=== PATIENT | female | born 1950 | race Caucasian/White ===

== ENCOUNTER → 2018-01-31 07:35 | Outpatient (CLI) | payer MEDICARE, OTHER, SELFPAY ==
[2018-01-31 09:09] LABS: Free T3, Triiodothyronine Free 3.04 pg/mL (2.77-5.27); Free T4, Direct Thyroxine 0.97 ng/dL (0.78-2.19)
[2018-01-31 09:23] LABS: Thyroid Stimulating Hormone 3.46 uIU/mL (0.47-4.68)
[2018-02-04 15:11] LABS: Thyroid Peroxidase Antibodies < 1 IU/mL (< 9)
== END ==
PROVIDERS: PCP Family Medicine; Visit Provider Family Medicine
DX: E05.00 Thyrotoxicosis with diffuse goiter without thyrotoxic crisis or storm (principal); E03.9 Hypothyroidism, unspecified
CPT/HCPCS: 36415; 83519; 84439; 84443; 84481; 86376

== ENCOUNTER → 2018-09-25 07:00 | Outpatient (CLI) | payer MEDICARE, OTHER, SELFPAY ==
[2018-09-25 08:39] LABS: Alanine Aminotransferase 23 IU/L (9-52); Albumin 4.2 g/dL (3.5-5.0); Albumin Globulin Ratio 1.5 (1.0-2.8); Alkaline Phosphatase 71 U/L (38-126); Aspartate Aminotransferase 27 IU/L (14-36); Bilirubin Total 0.6 mg/dL (0.2-1.3); Blood Urea Nitrogen 14 mg/dL (7-17); Calcium 9.7 mg/dL (8.4-10.2); Carbon Dioxide 29 mmol/L (22-32); Chloride 103 mmol/L (98-107); Cholesterol 171 mg/dL (140-199); Estimated Glomerular Filt Rate > 60.0 mL/min (>60); Globulin 2.8 g/dL (1.7-4.1); Glucose 99 mg/dL (80-110); HDL Cholesterol 80 mg/dL (40-60); HEMOLYSIS < 15 (0-50); LDL Cholesterol Calculated 82 mg/dL (<100); Potassium 4.6 mmol/L (3.4-5.1); Sodium 138 mmol/L (137-145); Triglycerides 45 mg/dL (35-150)
== END ==
PROVIDERS: PCP Family Medicine; Visit Provider Family Medicine
DX: E78.5 Hyperlipidemia, unspecified (principal)
CPT/HCPCS: 36415; 80053; 80061

== ENCOUNTER → 2018-10-13 15:40 | Outpatient (CLI) | payer MEDICARE, OTHER, SELFPAY ==
--- NOTE | 2018-10-13 15:43 | DI.MRI.S_ITS ---
PROCEDURE: MR ORBITS FACE NECK WO CON INDICATIONS: evaluate for Grave's Disease. Eye bulging TECHNIQUE: Noncontrast sagittal T1 spin echo, axial FLAIR, axial gradient echo, axial diffusion and ADC acquired through the brain. Coronal STIR, thin-slice axial T1 spin echo through the orbits. After the administration of contrast, thin-slice axial and coronal T1 spin echo with fat saturation through the orbits, axial T1 spin echo with fat saturation through the brain. COMPARISON: None. FINDINGS: Image quality: Excellent. Orbits: Globes are symmetrical. The optic nerves are normal in size, without abnormal signal or enhancement. No retrobulbar masses or fat abnormalities. The extra-ocular muscles are normal and symmetric in appearance. Lacrimal glands are normal. Optic chiasm is normal. Periorbital soft tissues appear normal. CSF spaces: Ventricles are normal in size and shape. Basal cisterns are patent. No extra-axial fluid collections. Brain: No intracranial bleeds or mass effects. No abnormal intracranial enhancement. T2 hyperintense 9 mm probable cystic lesion seen in the pineal region although technically nonspecific. White-white matter interface is intact. Diffusion weighted images demonstrate no acute ischemic insults. Pituitary gland appears normal, without sellar or suprasellar masses. Brainstem appears normal. Normal intravascular flow voids are present. Skull and face: Calvarial marrow is normal in signal. Sinuses: Sinuses and mastoids are clear. IMPRESSION: Unremarkable unenhanced examination as detailed above. Unremarkable appearance of the orbits although if there is sufficient clinical concern, contrast-enhanced study could be considered. 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 In the absence of prior comparison studies, consider continued surveillance with 6 month interval contrast-enhanced brain MRI for confirmation purposes. Dictated by: Bacilio Kat M.D. on 10/14/2018 at 16:37 Approved by: Bacilio Kat M.D. on 10/14/2018 at 16:44
== END ==
PROVIDERS: PCP Family Medicine; Visit Provider Ophthalmology
DX: E05.00 Thyrotoxicosis with diffuse goiter without thyrotoxic crisis or storm (principal)
CPT/HCPCS: 70540

== ENCOUNTER → 2018-11-27 08:45 | Outpatient (CLI) | payer MEDICARE, OTHER, SELFPAY ==
--- NOTE | 2018-11-27 08:50 | DI.RAD.S_ITS ---
PROCEDURE: XR HIP W PEL IF DONE LT 2V INDICATIONS: LEFT hip pain TECHNIQUE: 2 views of the hip were acquired. COMPARISON: None. FINDINGS: Bones: No fractures or dislocations. No suspicious bony lesions. The visualized pelvic ring appears intact. Mild left hip joint degeneration Soft tissues: No suspicious soft tissue calcifications or masses. IMPRESSION: Mild left hip joint degeneration. Dictated by: Bacilio Kat M.D. on 11/27/2018 at 10:04 Approved by: Bacilio Kat M.D. on 11/27/2018 at 10:05
--- NOTE | 2018-11-27 08:50 | DI.RAD.S_ITS ---
PROCEDURE: XR KNEE LT 3V INDICATIONS: LEFT knee pain TECHNIQUE: 3 views of the knee were acquired. COMPARISON: None. FINDINGS: Bones: No fractures or dislocations. No suspicious bony lesions. Severe patellofemoral joint space narrowing. Moderate narrowing of the medial joint space. Scattered degenerative subchondral sclerosis and spurring. Soft tissues: No joint effusion. No suspicious soft tissue calcifications. IMPRESSION: Severe left knee joint degeneration. Dictated by: Bacilio Kat M.D. on 11/27/2018 at 9:28 Approved by: Bacilio Kat M.D. on 11/27/2018 at 9:29
== END ==
PROVIDERS: PCP Family Medicine; Visit Provider Registered Nurse
DX: M25.562 Pain in left knee (principal); M25.552 Pain in left hip; M17.12 Unilateral primary osteoarthritis, left knee; M16.12 Unilateral primary osteoarthritis, left hip; M25.561 Pain in right knee; M25.551 Pain in right hip
CPT/HCPCS: 73502; 73562

== ENCOUNTER → 2019-01-22 10:09 | Outpatient (CLI) | payer MEDICARE, OTHER, SELFPAY ==
--- NOTE | 2019-01-22 10:12 | DI.US.S_ITS ---
LIMITED ULTRASOUND OF LEFT BREAST AND AXILLA: 01/22/2019 CLINICAL: Palpable left breast lump. Comparison is made to exams dated: 01/22/2019 mammogram, 08/02/2017 mammogram, 08/12/2015 mammogram, 04/02/2014 mammogram, and 10/08/2012 mammogram - [facility]. Color flow and real-time ultrasound of the left breast 2-4 o'clock, and axilla regions were performed. White scale images of the real-time examination were reviewed. Targeted ultrasound was performed in the region of the patient's reported focal palpable area of concern in the left breast at 2:00 position 5 cm from the nipple. No underlying breast mass or abnormality is identified. Targeted ultrasound was performed in the region of the patient's referring provider's focal palpable area of concern in the left breast at 4:00 position 5 cm from the nipple. No underlying breast mass or abnormality is identified. There is a 0.6 x 0.5 x 0.3 cm oval indistinct hypoechoic mass with posterior shadowing, taller than wide orientation, and no vascularity on Doppler imaging in the left breast at 4:00 position 5 cm from the nipple. This appears to correlate with the asymmetry seen on comparison diagnostic mammography performed earlier today 01/22/19. IMPRESSION: SUSPICIOUS OF MALIGNANCY 1) 0.6 x 0.5 x 0.3 cm oval indistinct hypoechoic mass in the left breast at 4:00 position 5 cm from the nipple is at low suspicion for malignancy. An ultrasound guided biopsy is recommended. 2) No ultrasound findings to explain patient's reported focal palpable area of concern in the left breast at 2:00 position 5 cm from the nipple. Recommend clinical follow-up for further evaluation and management of the patient's reported symptoms. These results and recommendations were discussed with the patient at the time of the exam by the [facility] Radiologist Dr. Dario Dean in person. This exam was interpreted at Station ID: [id number]. Electronically Signed By: Jj Levy M.D. ecl/:01/22/2019 11:48:21 letter sent: Biopsy Required Ultrasound BI-RADS: 4a Low suspicion for malignancy
--- NOTE | 2019-01-22 10:12 | DI.MG.S_ITS ---
BILATERAL DIGITAL DIAGNOSTIC MAMMOGRAM 3D/2D: 01/22/2019 CLINICAL: Left Lump. Patient's referring provider's order/requisition states 0.5 cm 4 o'clock position 5 cm from the nipple left breast. Comparison is made to exams dated: 08/02/2017 mammogram, 08/12/2015 mammogram, and 04/02/2014 mammogram - [facility]. The tissue of both breasts is heterogeneously dense. This may lower the sensitivity of mammography. There is a triangular marker overlying the skin of the upper outer left breast at middle depth the site of the patient's reported palpable abnormality. There is no underlying mammographic abnormality. Patient's referring provider's order/requisition describes a palpable abnormality described as 0.5 cm 4 o'clock position 5 cm from the nipple left breast. There is an oval indistinct focal asymmetry in the lower outer left breast near 4:00 position middle depth. This is best seen on the true lateral L LM view in the inferior left breast at middle depth (tomosynthesis image 32/57). No other suspicious masses, calcifications, or other findings are seen in either breast. There is a biopsy clip in the right breast. IMPRESSION: INCOMPLETE: NEEDS ADDITIONAL IMAGING EVALUATION 1) No mammographic abnormality to correlate with the site of the patient's reported focal palpable abnormality of the upper outer left breast. Targeted diagnostic ultrasound recommended for further evaluation, which will be performed immediately following this exam. 2) Patient's referring provider's order/requisition describes a palpable abnormality described as 0.5 cm 4 o'clock position 5 cm from the nipple left breast. There is an oval indistinct focal asymmetry in the lower outer left breast near 4:00 position middle depth which persists with additional views. Targeted diagnostic ultrasound recommended for further evaluation, which will be performed immediately following this exam. This exam was interpreted at Station ID: [id number]. NOTE: For mammograms, a report in lay terms will be sent to the patient. Approximately 15% of breast malignancies will not be visualized mammographically. In the management of a palpable breast mass, a negative mammogram must not discourage biopsy of a clinically suspicious lesion. Electronically Signed By: Jj Levy M.D. ecl/:01/22/2019 11:50:45 ACR BI-RADS Category 0: Incomplete [id number]
== END ==
PROVIDERS: PCP Family Medicine; Visit Provider Family Medicine
DX: R92.8 Other abnormal and inconclusive findings on diagnostic imaging of breast (principal); N63.23 Unspecified lump in the left breast, lower outer quadrant
CPT/HCPCS: 76642; 77066; G0279

== ENCOUNTER → 2019-02-12 13:04 | Outpatient (CLI) | payer MEDICARE, OTHER, SELFPAY ==
--- NOTE | 2019-02-12 | DI.MG.S_ITS ---
UNILATERAL LEFT DIGITAL DIAGNOSTIC MAMMOGRAM POST-NEEDLE BIOPSY: 02/12/2019 CLINICAL: Left breast mass. Comparison is made to exams dated: 01/22/2019 mammogram, 08/02/2017 mammogram, and 08/12/2015 mammogram - [facility]. The tissue of left breast is heterogeneously dense. This may lower the sensitivity of mammography. There is a biopsy clip is at the biopsy site. IMPRESSION: The biopsy clip is at the biopsy site. This exam was interpreted at Station ID: [id number]. NOTE: For mammograms, a report in lay terms will be sent to the patient. Approximately 15% of breast malignancies will not be visualized mammographically. In the management of a palpable breast mass, a negative mammogram must not discourage biopsy of a clinically suspicious lesion. Electronically Signed By: Jessica Koch M.D. fx/:02/12/2019 15:16:31 ACR BI-RADS Category n/a
--- NOTE | 2019-02-12 | PATH_ITS ---
[facility] Accession Number: [id number] . 01 Material submitted: . breast - LEFT BREAST 4:00 MASS 5 CM FN . 02 Diagnosis: Left Breast Mass at 4 o'clock, 5 cm from Nipple, Needle Core Biopsy: Benign breast parenchyma with fibroadenomatous and fibrocystic features and involvement by sclerosing adenosis. Negative for atypia, carcinoma in-situ, or malignancy. MRV 02/13/2019 1605 Local . 02 Electronically signed: . Pat Pollard MD, Pathologist NPI- [id number] . 01 Gross description: . Received one formalin-filled container labeled with the patient's name and designated left breast 4 o'clock mass 5 cm FN. The specimen is received with a plastic filter in container, sample loose in container and consists of multiple yellow-jansen, cylindrical-shaped portions of tissue which range in size from 0.1 x 0.1 x 0.1 cm to 1.2 x 0.3 x 0.3 cm. The specimen is filtered and entirely submitted in one cassette. Collection date: 02/12/2019. Collection time per container: 1:50 p.m. Total fixation time: Approximately 13 hours. ([id number]) /[place] 02/13/2019 0225 Local . 02 Pathologist provided ICD-10: N60.02 . 02 CPT . 962428 Performed at: 01 [facility] [address] [place] [address], [place], [place] [id number] MD Bennie Cooper MD Phone: [phone] Performed at: [address] [facility] [address] [place], [place] [id number] MD Cyndee Trivedi MD Phone: [phone]
--- NOTE | 2019-02-12 13:05 | DI.US.S_ITS ---
ULTRASOUND GUIDED BIOPSY LEFT BREAST USING VACUUM DEVICE WITH POST MAMMOGRAPHIC AND ULTRASOUND IMAGIN02/12/2019 CLINICAL: Left breast mass. PATIENT CONSENT: Risks (minor bleeding, infection, vasovagal reaction and repeat procedure), benefits and alternatives were explained to the patient and written informed consent was obtained. Correlation is made to exams dated: 01/22/2019 ultrasound, 01/22/2019 mammogram, 08/02/2017 mammogram, and 08/12/2015 mammogram - [facility]. An ultrasound guided biopsy using real-time ultrasound was performed for the oval mass located in the left breast at 4 o'clock middle depth. This was described on the previous ultrasound report. The skin was prepped in the usual manner. Local anesthetic was administered to the access site. The abnormality was approached from the lateral aspect. A 13 gauge biopsy needle was placed adjacent to the abnormality under ultrasound guidance. Once the needle was documented to be in the correct location, five specimens were obtained using the Mammotome biopsy system. Post procedure mammographic and ultrasound imaging demonstrates the clip at the targeted area. The specimens were sent to the laboratory for pathological analysis. IMPRESSION: ULTRASOUND GUIDED BIOPSY BENIGN Ultrasound guided biopsy of the mass in the left breast middle depth was successful. Pathology indicates benign sclerosing adenosis (SA), fibroadenomatoid change, and fibrocystic changes (FC). Pathology results are concordant with imaging findings. Return to annual mammogram screening schedule is recommended. This exam was interpreted at Station ID: [id number]. Jessica Carroll M.D. fx,aty/:02/17/2019 17:46:13
== END ==
PROVIDERS: PCP Family Medicine; Visit Provider Family Medicine
DX: N60.22 Fibroadenosis of left breast (principal); N60.12 Diffuse cystic mastopathy of left breast
CPT/HCPCS: 19083; 77065

== ENCOUNTER → 2019-03-25 15:58 | Outpatient (CLI) | payer MEDICARE, OTHER, SELFPAY | PROVIDERS: PCP Family Medicine; Visit Provider Physician Assistant | DX: R30.0 Dysuria (principal) | CPT/HCPCS: 87086 ==

== ENCOUNTER → 2019-07-01 15:38 | Outpatient (CLI) | payer MEDICARE, OTHER, SELFPAY ==
--- NOTE | 2019-07-01 15:40 | DI.MRI.S_ITS ---
PROCEDURE: MR HEAD/BRAIN WO/W CON INDICATIONS: Pineal cyst TECHNIQUE: Noncontrast axial T1 spin echo, axial T2 fast spin echo, sagittal and axial FLAIR, coronal T2 fast spin echo, axial gradient echo, axial diffusion and ADC through the brain. After the administration of contrast, axial and coronal T1 spin echo with fat saturation through the brain. COMPARISON: [facility], MR, MR ORBITS FACE NECK WO CON, 10/13/2018, 16:00. FINDINGS: Image quality: Excellent. CSF spaces: Basal cisterns are patent. No extra-axial fluid collections. Ventricles are normal in size and shape. Brain: No midline shift. No intracranial bleeds or masses. Grossly unchanged 9 mm pineal cystic lesion since the prior study dated 10/13/18. No internal enhancement There is cerebral volume loss for age. There is periventricular white matter chronic small vessel ischemic change. The brainstem appears normal. Diffusion-weighted images demonstrate no acute ischemic insults. No chronic ischemic insults. Normal intravascular flow voids are present. Skull and face: Calvarial marrow is normal in signal. Orbits appear normal. Sinuses: Sinuses and mastoids appear clear. 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 on 07/01/2019 at 16:48 Approved by: Bacilio Kat M.D. on 07/01/2019 at 17:02
== END ==
PROVIDERS: PCP Family Medicine; Referring Provider Family Medicine; Visit Provider Family Medicine
DX: E34.8 Other specified endocrine disorders (principal)
CPT/HCPCS: 70553

== ENCOUNTER 2019-07-17 12:24 | Emergency (ER) | payer MEDICARE, OTHER, SELFPAY ==
[2019-07-17 12:32] VITALS: BP 159/91; PULSE 90; RESP 16; TEMP 37.1; O2SAT 99; BMI 28.5
--- NOTE | 2019-07-17 12:32 | ED.GENADULT ---
HPI - General Adult General Chief complaint: Chest Pain Stated complaint: heart symptoms Time Seen by Provider: 07/17/19 12:30 Source: patient Mode of arrival: Ambulatory Limitations: no limitations History of Present Illness HPI narrative: Patient is a 68-year-old female sent over via primary doctor for evaluation of potential COVID and chest pain. Patient states that over the past couple days/week she has been in contact with 2 individuals that are known positive. She has also had a cough and malaise. Had 1 day of a headache. Had some nausea but that has since resolved. She has also had left-sided chest discomfort. This has been going on for the past 3 weeks. It is occasional. She did have at this morning. She does not think that is associated with her cough. Related Data Home Medications Medication Instructions Recorded Confirmed [CO Q 10] 100 mg OR HS #0 08/03/16 03/25/19 latanoprost [Xalatan] 1 drp OU HS #0 08/03/16 03/25/19 Previous Rx's Medication Instructions Recorded atorvastatin 10 mg tablet 10 mg PO HS #90 tab-cap 07/29/18 10% diclofenac See Rx Instructions .ROUTE 10/30/18 .COMPLEX #60 gram acyclovir 400 mg tablet 400 mg PO TID PRN #30 tab-cap 04/22/19 Allergies Allergy/AdvReac Type Severity Reaction Status Date / Time Penicillins [PENICILLINS] Allergy Severe severe Verified 03/25/19 08:21 swelling Review of Systems Constitutional Constitutional: Reports chills and Reports fatigue Cardiovascular Cardiovascular: Reports chest pain, Denies rapid heart rate, Denies edema, Denies palpitations and Denies dyspnea Respiratory Respiratory: Reports cough and Denies dyspnea Gastrointestinal Gastrointestinal: Reports nausea and Denies vomiting Musculoskeletal Musculoskeletal: Denies myalgias and Denies arthralgias Integumentary/Breasts Skin/Breast: Denies lesions and Denies rash Neurologic Neurologic: Denies behavioral changes Psychiatric Psychiatric: Denies behavioral changes Endocrine Endocrine: Reports fatigue and Denies palpitations Patient History Medical History Actinic keratosis due to exposure to sunlight (Acute ~2004) Chickenpox (Inactive ~1958) Fractures (Acute ~1972) GERD (gastroesophageal reflux disease) (Resolved ~2004) Hemorrhage following tonsillectomy and adenoidectomy (Acute) Measles (Acute ~1962) Mumps (Acute ~1959) Shoulder pain with history of repair of rotator cuff (Acute ~2001) Surgical History (Updated 12/12/18 @ 07:23 by Diana Comer) Anesthesia (Acute) H/O colonoscopy with polypectomy (Acute) History of adenoidectomy (Acute ~1955) History of carpal tunnel release of both wrists (Acute ~1997) History of colonoscopy (Acute) History of tonsillectomy (Acute ~1957) Family History (Updated 12/12/18 @ 07:27 by Diana Comer) Father Congestive heart failure Seizures Mother Alzheimer's dementia High cholesterol Grandfather High cholesterol Cancer Grandmother Diabetes mellitus Recovering alcoholic Grandfather No problems noted. Grandmother No problems noted. Social History Smoking Status: Never smoker alcohol intake: current substance use type: does not use Smoking Status: Never smoker Exam Initial Vital Signs Initial Vital Signs: Vital Signs Temperature 98.8 F 07/17/19 12:32 Pulse Rate 90 07/17/19 12:32 Respiratory Rate 16 07/17/19 12:32 Blood Pressure 159/91 H 07/17/19 12:32 Pulse Oximetry 99 07/17/19 12:32 Const General: cooperative, comfortable, well developed and well groomed Limitations: mental status not altered HENMT Head: normal to inspection and normocephalic Resp Effort & Inspection: normal respiratory effort Auscultation: clear to auscultation bilaterally Cardio Rate: regular rate Rhythm: regular rhythm Pulses: radial pulses present Skin Lesions: no lesions Rashes: no rashes Neuro General: alert, awake and oriented x3 Cognition: normal cognition Speech: speech normal Extrem General: normal to inspection and capillary refill normal Psych Appearance: grossly normal Scores HEART Score Heart Score history: Slightly Suspicious Heart Score EKG: Normal Heart Score Age: > or = 65 years old Heart Score risk factors: 1-2 risk factors Heart Score troponin: < or = to normal limit Heart Score Total: 3 Course Orders Ordered: ED Orders 07/17/19 12:31 EKG-12 Lead Stat 07/17/19 12:32 XR chest 1V Stat 07/17/19 12:45 Basic Metabolic Panel Stat Complete Blood Count AUTO DIFF Stat NT-proBNP (BNP-Adult 18+) Stat Troponin I Stat 07/17/19 15:00 Troponin I Stat Vital Signs Vital signs: Vital Signs - 8 hr 07/17/19 12:32 07/17/19 13:10 07/17/19 14:00 Temperature 98.8 F Pulse Rate 90 91 H 78 Respiratory Rate 16 19 Blood Pressure 159/91 H Blood Pressure [Left Arm] 155/91 H Pulse Oximetry 99 99 99 07/17/19 15:04 Temperature Pulse Rate 68 Respiratory Rate 21 Blood Pressure Blood Pressure [Left Arm] 144/67 H Pulse Oximetry 100 Medical Decision Making Lab Data Lab results reviewed: Yes I reviewed the patient's lab results. Result diagrams: 07/17/19 12:45 07/17/19 12:45 Labs: Lab Results 07/17/19 07/17/19 07/17/19 Range/Units 12:45 12:45 12:45 WBC 6.9 (4.5-11.0) X10^3/uL RBC 4.40 (4.0-5.2) X10^6/uL Hgb 13.2 (12.0-16.0) g/dL Hct 39.8 (36-46) % MCV 90.4 (80-100) fL MCH 30.1 (26-34) PG MCHC 33.3 (30-36) % RDW 13.6 (11.6-14.8) % Plt Count 286 (150-400) X10^3/uL Neut % (Auto) 58.2 (50-75) % Lymph % (Auto) 31.3 (25-40) % Victoria % (Auto) 7.7 (3-14) % Eos % (Auto) 2.0 (2-4) % Baso % (Auto) 0.8 (0-2) % Neut # (Auto) 4000 (2272-2805) /uL Lymph # (Auto) 2200 (0784-3637) /uL Victoria # (Auto) 500 (0-900) /uL Eos # (Auto) 100 (0-450) /uL Baso # (Auto) 100 (0-100) /uL Sodium 141 (137-145) mmol/L Potassium 4.0 (3.4-5.1) mmol/L Chloride 104 (98-107) mmol/L Carbon Dioxide 28 (22-32) mmol/L BUN 17 (7-17) mg/dL Creatinine 0.73 (0.52-1.04) mg/dL Estimated GFR > 60.0 (>60) mL/min BUN/Creatinine Ratio 23.3 H (6-22) Glucose 112 H (80-110) mg/dL Calcium 9.8 (8.4-10.2) mg/dL Troponin I < 0.012 (0.01-0.034) ng/mL NT-Pro-B Natriuret Pep 41 (<125) pg/mL 07/17/19 Range/Units 15:00 WBC (4.5-11.0) X10^3/uL RBC (4.0-5.2) X10^6/uL Hgb (12.0-16.0) g/dL Hct (36-46) % MCV (80-100) fL MCH (26-34) PG MCHC (30-36) % RDW (11.6-14.8) % Plt Count (150-400) X10^3/uL Neut % (Auto) (50-75) % Lymph % (Auto) (25-40) % Victoria % (Auto) (3-14) % Eos % (Auto) (2-4) % Baso % (Auto) (0-2) % Neut # (Auto) (9997-6456) /uL Lymph # (Auto) (8555-5448) /uL Victoria # (Auto) (0-900) /uL Eos # (Auto) (0-450) /uL Baso # (Auto) (0-100) /uL Sodium (137-145) mmol/L Potassium (3.4-5.1) mmol/L Chloride (98-107) mmol/L Carbon Dioxide (22-32) mmol/L BUN (7-17) mg/dL Creatinine (0.52-1.04) mg/dL Estimated GFR (>60) mL/min BUN/Creatinine Ratio (6-22) Glucose (80-110) mg/dL Calcium (8.4-10.2) mg/dL Troponin I < 0.012 (0.01-0.034) ng/mL NT-Pro-B Natriuret Pep (<125) pg/mL Imaging Data Chest x-ray: Radiologist's Impression: [address] [address] XRay Report Signed Patient: Rosas Hernandez KMR#: [id number] : [id number]:[id number] Age/Sex: 68 / FDate of Service: 07/17/19 Loc: ED Accession Number: [id number] Procedure: XR chest 1V Ordering Provider: Con Stephens D.O. PROCEDURE: XR CHEST 1V INDICATIONS: Chest pain and cough TECHNIQUE: One view of the chest was acquired. COMPARISON: [facility], CHEST 2 VIEW, 10/19/2015, 11:42. [facility], CHEST 2 VIEW, 04/06/2013, 10:33. FINDINGS: Surgical changes and devices: None. Lungs and pleura: Lungs are clear. No pleural effusions or pneumothorax. Mediastinum: Mediastinal contours appear normal. Heart size is normal. Bones and chest wall: No suspicious bony lesions. Overlying soft tissues appear unremarkable. IMPRESSION: Normal for age, source of current chest pain and cough symptoms is not seen. Dictated by: Avelino Gustafson M.D. on 07/17/2019 at 13:22 Approved by: Avelino Gustafson M.D. on 07/17/2019 at 13:24 ECG Data Attestation: I personally reviewed and interpreted this ECG as follows: Prior ECG tracings: not available for review Interpretation: Sinus rhythm Ventricular rate 83 Normal axis Normal QRS Normal QTC No ST T wave changes MDM Narrative Medical decision making narrative: Patient was tested for COVID she was given return precautions and isolation instructions with regard to this. Has had occasional left-sided chest pain for the past 3 weeks. Has a low risk heart score. Negative troponin x2. I feel we could hold on further workup for now with regard to this. Have her contact her primary provider for follow-up. No indication for antibiotics. She was given return precautions. She expressed understanding and agreement. Discharge Plan Departure Patient Disposition: Home Clinical Impression: Atypical chest pain Instructions: DI for Atypical Chest Pain Activity Restrictions/Additional Instructions: Your COVID-19 test today will take 2-7 days to return. We will call you for positive or negative results. Also recommend you contact your primary doctor to discuss further workup of your chest discomfort. *What to do: * per recommendations from the CDC and the [facility] Department of Health * stay home except to get medical care. Restrict activities outside your home, except for getting medical care. Do not go to work, school, or public areas. Avoid using public transportation, ride sharing, or taxis. * separate yourself from other people in your home. * call ahead before visiting your doctor * Wear a face mask * Cover your coughs and sneezes * Clean your hands often * Avoid sharing household items * Clean all high-touch services every day * Monitor your symptoms and seek prompt medical attention if your illness is worsening, particularly with difficulty in breathing. Discussed continuing home isolation * for individuals with symptoms who are confirmed or suspected cases of COVID-19 and are directed to care for themselves at home, discontinue home isolation under the following conditions: 1. At least 72 hours have passed since recovery, defined as resolution of fever without the use of fever reducing medications, and improvement in respiratory symptoms (cough, shortness of breath) AND, 2. At least 7 days have passed since symptoms 1st appeared Individuals with laboratory confirmed COVID-19 who have not had any symptoms may discontinue home isolation when at least 7 days have passed since the date of their 1st COVID-19 diagnostic test and have had no subsequent illness Prescriptions: No Action [CO Q 10] 100 mg OR HS Qty: 0 RF: 0 latanoprost [Xalatan] 0.005 % drops 1 drp OU HS Qty: 0 RF: 0 atorvastatin [Lipitor] 10 mg tablet 10 mg PO HS Qty: 90 RF: 3 acyclovir 400 mg tablet 400 mg PO TID PRN (Reason: outbreak) Qty: 30 RF: 3 10% diclofenac cream See Rx Instructions .ROUTE .COMPLEX Qty: 60 RF: 2 Referrals: Shreya Regalado DO [Primary Care Provider] -
[2019-07-17 12:58] LABS: Add Manual Diff / Slide Review NO; Basophils Absolute Auto 100 /uL (0-100); Basophils Percent Auto 0.8 % (0-2); Eosinophils Absolute Auto 100 /uL (0-450); Hematocrit 39.8 % (36-46); Hemoglobin 13.2 g/dL (12.0-16.0); Lymphocytes Absolute Auto 2200 /uL (1100-4500); Lymphocytes Percent Auto 31.3 % (25-40); Mean Corpuscular HGB Conc 33.3 % (30-36); Mean Corpuscular Hemoglobin 30.1 PG (26-34); Mean Corpuscular Volume 90.4 fL (80-100); Monocytes Absolute Auto 500 /uL (0-900); Monocytes Percent Auto 7.7 % (3-14); Neutrophils Absolute Auto 4000 /uL (1500-7000); Neutrophils Percent Auto 58.2 % (50-75); Platelet Count 286 X10^3/uL (150-400); Red Cell Distribution Width 13.6 % (11.6-14.8); White Blood Cell Count 6.9 X10^3/uL (4.5-11.0)
--- NOTE | 2019-07-17 13:02 | PC.NURSE ---
Patient reports she had an exposure to COVID a few weeks ago. Since then has had very mild intermittent cough and chest pain. States chest pain comes and goes and has been coming more frequently the last few days. Chest painsometimes happens just while I'm lying down in bed. Not always associated with cough. Patient also has some swelling in legs.
[2019-07-17 13:10] VITALS: BP 155/91; PULSE 91; O2SAT 99
[2019-07-17 13:14] LABS: BUN Creatinine Ratio 23.3 (6-22); Blood Urea Nitrogen 17 mg/dL (7-17); Calcium 9.8 mg/dL (8.4-10.2); Carbon Dioxide 28 mmol/L (22-32); Chloride 104 mmol/L (98-107); Estimated Glomerular Filt Rate > 60.0 mL/min (>60); Glucose 112 mg/dL (80-110); HEMOLYSIS < 15 (0-50); Sodium 141 mmol/L (137-145)
[2019-07-17 13:24] LABS: NT-proBNP (BNP-Adult 18+) 41 pg/mL (<125)
[2019-07-17 13:26] LABS: Troponin I < 0.012 ng/mL (0.01-0.034)
[2019-07-17 14:00] VITALS: PULSE 78; RESP 19; O2SAT 99
[2019-07-17 15:04] VITALS: BP 144/67; PULSE 68; RESP 21; O2SAT 100
[2019-07-17 15:36] LABS: Troponin I < 0.012 ng/mL (0.01-0.034)
[2019-07-17 16:03] VITALS: BP 144/67; PULSE 76; RESP 16; O2SAT 99
[2019-07-18 22:53] LABS: COVID19 Sendout Not Detected (Not Detected)
== END 2019-07-17 16:19 | disposition home or self-care (01) ==
PROVIDERS: Emergency Provider Emergency Medicine; PCP Family Medicine
DX: R07.89 Other chest pain (principal); R05 Cough; R51 Headache; R68.89 Other general symptoms and signs
CPT/HCPCS: 36415; 71045; 80048; 83880; 84484; 85025; 87635; 93005; 99284

== ENCOUNTER → 2019-12-14 10:56 | Outpatient (CLI) | payer MEDICARE, OTHER, SELFPAY ==
[2019-12-16 12:36] LABS: H. Pylori Antigen Stool Negative (Negative)
== END ==
PROVIDERS: PCP Family Medicine; Referring Provider Family Medicine; Visit Provider Family Medicine
DX: R10.12 Left upper quadrant pain (principal); R11.0 Nausea
CPT/HCPCS: 87338

== ENCOUNTER → 2020-01-22 07:14 | Outpatient (CLI) | payer MEDICARE, OTHER, SELFPAY ==
[2020-01-22 09:33] LABS: Alanine Aminotransferase 23 IU/L (<35); Albumin 4.4 g/dL (3.5-5.0); Albumin Globulin Ratio 1.5 (1.0-2.8); Alkaline Phosphatase 86 U/L (38-126); Aspartate Aminotransferase 34 IU/L (14-36); BUN Creatinine Ratio 16.9 (6-22); Bilirubin Total 0.5 mg/dL (0.2-1.3); Blood Urea Nitrogen 13 mg/dL (7-17); Calcium 9.7 mg/dL (8.4-10.2); Carbon Dioxide 32 mmol/L (22-32); Chloride 104 mmol/L (98-107); Cholesterol 234 mg/dL (140-199); Estimated Glomerular Filt Rate > 60.0 mL/min (>60); Glucose 99 mg/dL (80-110); HDL Cholesterol 100 mg/dL (40-60); HEMOLYSIS < 15 (0-50); LDL Cholesterol Calculated 121 mg/dL (<100); Potassium 4.9 mmol/L (3.4-5.1); Sodium 140 mmol/L (137-145); Total Protein 7.4 g/dL (6.3-8.2); Triglycerides 63 mg/dL (35-150)
== END ==
PROVIDERS: PCP Family Medicine; Referring Provider Family Medicine; Visit Provider Family Medicine
DX: E78.2 Mixed hyperlipidemia (principal)
CPT/HCPCS: 36415; 80053; 80061

== ENCOUNTER → 2020-02-15 10:07 | Outpatient (CLI) | payer MEDICARE, OTHER, SELFPAY ==
--- NOTE | 2020-02-15 | DI.MG.S_ITS ---
BILATERAL DIGITAL SCREENING MAMMOGRAM 3D/2D WITH CAD: 02/15/2020 CLINICAL: Routine screening. Comparison is made to exams dated: 01/22/2019 mammogram, 08/02/2017 mammogram, and 08/12/2015 mammogram - [facility]. There are scattered fibroglandular elements in both breasts. Current study was also evaluated with a Computer Aided Detection (CAD) system. There is a biopsy clip in both breasts. No significant masses, calcifications, or other findings are seen in either breast. There has been no significant interval change. IMPRESSION: NEGATIVE There is no mammographic evidence of malignancy. A 1 year screening mammogram is recommended. This exam was interpreted at Station ID: [id number]. NOTE: For mammograms, a report in lay terms will be sent to the patient. Approximately 15% of breast malignancies will not be visualized mammographically. In the management of a palpable breast mass, a negative mammogram must not discourage biopsy of a clinically suspicious lesion. Electronically Signed By: Renate beckett/jaimie:02/15/2020 13:44:52 letter sent: Normal Exam ACR BI-RADS Category 1: Negative 3341F
== END ==
PROVIDERS: PCP Family Medicine; Referring Provider Family Medicine; Visit Provider Family Medicine
DX: Z12.31 Encounter for screening mammogram for malignant neoplasm of breast (principal)
CPT/HCPCS: 77063; 77067

== ENCOUNTER → 2020-06-09 12:03 | Outpatient (CLI) | payer MEDICARE, OTHER, SELFPAY ==
[2020-06-09 12:25] LABS: COVID19 -Nasal RAPID Negative (Negative)
== END ==
PROVIDERS: PCP Family Medicine; Visit Provider Surgery
DX: Z20.822 Contact with and (suspected) exposure to COVID-19 (principal); R10.13 Epigastric pain; K21.9 Gastro-esophageal reflux disease without esophagitis; R11.0 Nausea
CPT/HCPCS: 87635; 99214

== ENCOUNTER 2020-06-10 06:49 | Day surgery (SDC) | payer MEDICARE, OTHER, SELFPAY ==
[2020-06-10] VITALS (9 sets, daily range): BP systolic 101–121; BP diastolic 53–73; PULSE 68–99; RESP 12–20; TEMP 36.8–37.4; O2SAT 93–100; BMI 30.7
--- NOTE | 2020-06-10 | PATH_ITS ---
[facility] Accession Number: [id number] . 01 Material submitted: . PART A: duodenum - DUODENUM PART B: stomach - STOMACH PART C: esophagus - ESOPHAGUS . 02 Diagnosis: A. Duodenum, Biopsy: Duodenal mucosa with no diagnostic abnormality. Negative for active inflammation, features of sprue, dysplasia, or malignancy. . B. Stomach, Biopsy: Portions of gastric antral and body-type mucosa with mild chronic inflammation. Negative for Helicobacter organisms by immunohistochemistry. Negative for intestinal metaplasia. Negative for dysplasia and malignancy. . C. Esophagus, Biopsy: Portions of proximal gastric mucosa with mild chronic inflammation. Negative for intestinal metaplasia by alcian blue stain. No squamous / junctional mucosa identified for evaluation. Negative for dysplasia or malignancy. [facility] 06/16/2020 1622 Local . 02 Electronically signed: . Pat Pollard MD, Pathologist NPI- [id number] . 01 Gross description: . A. Specimen A is received in formalin, labeled duodenum and consists of a 0.5 x 0.3 x 0.2 cm jansen fragment of soft tissue, which is entirely submitted in cassette A1. B. Specimen B is received in formalin, labeled stomach and consists of four jansen fragments of soft tissue, measuring 1.2 x 1.0 x 0.2 cm in aggregate. The specimen is entirely submitted in cassette B1. C. Specimen C is received in formalin, labeled esophagus and consists of three jansen fragments of soft tissue, measuring 1.0 x 0.8 x 0.2 cm in aggregate. The specimen is entirely submitted in cassette C1. (EA:[id number]) /[facility] 06/14/2020 1722 Local . 02 Microscopic: . B. An immunohistochemical stain was performed to evaluate for Helicobacter organisms and is negative. The control stain showed appropriate reactivity. . * This test was developed and its performance characteristics determined by [facility]. It has not been cleared or approved by the U.S. Food and Drug Administration. The FDA has determined that such clearance or approval is not necessary. This test is used for clinical purposes. It should not be regarded as investigational or for research. . 02 Pathologist provided ICD-10: R11.0, R12 . 02 CPT . 317118, 329469, 538956, [id number], [id number] Performed at: 01 [facility] [address] [id number] MD Bennie Cooper MD Phone: [phone] Performed at: 02 [facility] [address] [place] [id number] MD Cyndee Trivedi MD Phone: [phone]
--- NOTE | 2020-06-10 07:28 | PM.PREOP ---
Pre-operative Note COVID-19 COVID-19 status: Negative Result date/Date tested (Pos, Neg/Pending): 06/09/20 Interval Note History & Physical reviewed/Exam performed by Physician: Yes Changes to H&P: No ASA Class (for procedural sedation): II
[2020-06-10] MEDS: SODIUM CHLORIDE 0.9% 1,000 ML 200 ML IV (07:32)
--- NOTE | 2020-06-10 08:02 | PM.OP.ENDO ---
Operative Date/Time/Diagnoses Date of procedure: 06/10/20 Time of procedure: 08:02 Pre-op diagnosis: Nausea Post-op diagnosis: other (hiatal hernia, possible diaphgragmatic hernia; Au's esophagus, gastritis) Procedure & Clinicians Study performed: Esophagogastroduodenoscopy Procedural sedation performed by the endoscopist Biopsies of duodenum, stomach, distal esophagus Same procedure as scheduled: Yes Indications: Persistent nausea and epigastric, unresolved by PPI Surgeon: Ginny Coppola Procedure Notes SCOAP/Timeout: Performed Procedure in detail: The patient was brought to the room and placed in left lateral decubitus position with all bony prominences padded. A bite block was positioned in the patient's mouth to protect the lips, teeth, and tongue for the procedure. A time-out was performed and then the patient was given procedural sedation starting with 4 mg of Versed and 100 mcg of fentanyl. Vitals were monitored throughout the procedure and remained stable. Once adequately sedated, the procedure was begun. The lubricated gastroscope was passed through the bite block and across the tongue and into the esophagus without incident. A tubular view of the esophagus was maintained as the scope was advanced through the esophagus and into the stomach. The scope was advanced through the stomach and to the pylorus. The scope was gently popped through the pylorus and into the duodenal bulb. The scope was flexed and advanced into the second and third portions of the duodenum. The duodenum and duodenal bulb revealed some mild endoscopic inflammation, no specific ulcers or sites of bleeding. Biopsies were taken. The scope was withdrawn into the stomach. The stomach revealed some endoscopic gastritis, without visible ulcers or active bleeding. Biopsies were taken to rule out H pylori and to quantify the degree of gastritis. The scope was retroflexed and the gastric cardia was examined. There was a defect in the apex of the fundus of the stomach, consistent with a possible diaphragmatic hernia. Pictures were taken. No ulcerations were seen in the stomach at this site. The scope was then straightened, and withdrawn into the esophagus. The Z-line was at 33 cm with a large tongue of salmon-colored mucosa coming up into the esophagus about 2-3 cm. This was nearly circumferential, about 2/3 to [address] the esophagus. The crural pinch was seen at 28 cm. Biopsies were taken. The remainder of the esophagus appeared normal. The scope was then withdrawn through the esophagus with a tubular view. The scope was then withdrawn from the patient the procedure was concluded. The patient tolerated the procedure well and was transferred to the PACU in stable condition. Sedation minutes: 12 Findings: Au's esophagus, gastritis, hiatal hernia and other findings (Possible diaphragmatic hernia) Specimen(s): other (Biopsies of esophagus, stomach, duodenum) Complications: none Impression: Potential causes of nausea are hiatal hernia, esophagitis, gastritis, diaphragmatic hernia Post-procedure Recommendations: Other recommendation (CT scan to evaluate for diaphragmatic hernia will be ordered. Further recommendations pending biopsy results) Follow up: as needed Disposition: PACU
[2020-06-10] MEDS: MIDAZOLAM 5 MG/5 ML VIAL IV (08:05)
[2020-06-10] MEDS: fentaNYL 250 MCG/5 ML INJ IV (08:05)
--- NOTE | 2020-06-10 09:14 | SUR.PHASEII ---
Assumed care from Radha, called for update, awaiting to get script from Dr. Coppola.
--- NOTE | 2020-06-10 16:42 | SUR.PHASEII ---
Late entry: Pt waited till Dr. Coppola clarified omeprazole order, she instructed pt to get renewal prescription from the doctor who prescribed med.
--- NOTE | 2020-06-10 16:45 | SUR.PHASEII ---
Pt left when ready and left in stable condition.
== END 2020-06-10 09:30 | disposition home or self-care (01) ==
PROVIDERS: PCP Family Medicine; Referring Provider Family Medicine; Visit Provider Surgery
PROC: 0DJ08ZZ Inspection of Upper Intestinal Tract, Via Natural or Artificial Opening Endoscopic (ICD-10-PCS; CPT 43235; principal; 2020-06-10 07:45)
DX: K29.50 Unspecified chronic gastritis without bleeding (principal); K44.9 Diaphragmatic hernia without obstruction or gangrene; K22.70 Barrett's esophagus without dysplasia; K21.00 Gastro-esophageal reflux disease with esophagitis, without bleeding
CPT/HCPCS: 43239; 99152; J2250; J3010

== ENCOUNTER → 2020-06-14 13:41 | Outpatient (CLI) | payer MEDICARE, OTHER, SELFPAY ==
[2020-06-14 16:00] LABS: BUN Creatinine Ratio 23.4 (6-22); Blood Urea Nitrogen 15 mg/dL (7-17); Estimated Glomerular Filt Rate > 60.0 mL/min (>60)
== END ==
PROVIDERS: PCP Family Medicine; Referring Provider Surgery; Visit Provider Surgery
DX: R19.8 Other specified symptoms and signs involving the digestive system and abdomen (principal)
CPT/HCPCS: 36415; 82565; 84520

== ENCOUNTER → 2020-06-17 07:07 | Outpatient (CLI) | payer MEDICARE, OTHER, SELFPAY ==
--- NOTE | 2020-06-17 07:08 | DI.US.S_ITS ---
PROCEDURE: US ABDOMEN LIMITED INDICATIONS: EPIGASTRIC PAIN TECHNIQUE: Real-time focused scanning was performed of the abdomen, with image documentation. COMPARISON: None. FINDINGS: The liver is normal in size and echotexture, with normal caliber of the main portal vein, which is patent. The gallbladder is free of calculus but does contain a small amount of sludge, and pancreas appears normal as do the adjacent bile ducts. IMPRESSION: Note is made of sludge within the gallbladder lumen. A discrete calculus is not seen. The gallbladder wall is normal in thickness at 1.4 mm. There is no focal tenderness during sonographic palpation of the gallbladder. The common duct measures 2.8 mm, normal. The pancreas is normal in echotexture and free of adjacent free fluid. Dictated by: Avelino Gustafson M.D. on 06/17/2020 at 8:58 Approved by: Avelino Gustafson M.D. on 06/17/2020 at 9:00
--- NOTE | 2020-06-17 08:40 | DI.CT.S_ITS ---
PROCEDURE: CT ABDOMEN PELVIS W CON INDICATIONS: Rule out diaphragmatic hernia TECHNIQUE: After the administration of intravenous contrast, 5 mm thick sections acquired from the diaphragm to the symphysis. 5 mm coronal and sagittal reformats were acquired. For radiation dose reduction, the following was used: automated exposure control, adjustment of mA and/or kV according to patient size. COMPARISON: [facility], CT, ABDOMEN WITH AND WITHOUT CONTR, 07/16/2007, 11:00. [facility], CR, XR CHEST 1V, 07/17/2019, 12:41. FINDINGS: Image quality: Excellent. ABDOMEN: Lung bases: Lung bases are clear. Heart size is normal. Note is made of a left-sided 1.5 cm focal defect within the posterior medial left hemidiaphragm allowing a small amount of left upper quadrant fat to extend cephalad to the diaphragm through this defect, measuring overall approximately 2.3 cm in diameter with a craniocaudad extent of 1.5 cm. No associated edema. Solid organs: Liver is normal in size and enhancement. A small superior right posterior hepatic segment hemangioma seen by multiphase liver MRI 07/16/07 is not clearly visualized in this phase of contrast enhancement. Gallbladder appears normal Biliary system is non dilated. Pancreas enhances normally. Spleen is normal in size and enhancement. No adrenal nodules. Kidneys demonstrate normal size and enhancement, without hydronephrosis. Peritoneum and bowel: Bowel loops demonstrate normal wall thickness and caliber. No free fluid or air. Nodes and vessels: No retroperitoneal or mesenteric adenopathy by size criteria. Aorta and inferior vena cava are normal in size. Miscellaneous: No ventral hernias. PELVIS: Genitourinary: Bladder wall thickness is normal. Miscellaneous: No inguinal hernias or adenopathy. Bones: No suspicious bony lesions. No vertebral body compression fractures. IMPRESSION: 1.5 cm diaphragmatic defect on the left medially posteriorly allowing a small amount of left upper quadrant fat to extend through that defect for only 1.5 cm, without evidence of incarceration or strangulation. Dictated by: Avelino Gustafson M.D. on 06/17/2020 at 14:55 Approved by: Avelino Gustafson M.D. on 06/17/2020 at 15:01
== END ==
PROVIDERS: PCP Family Medicine; Referring Provider Surgery; Visit Provider Surgery
DX: R10.13 Epigastric pain (principal); R11.0 Nausea; R19.8 Other specified symptoms and signs involving the digestive system and abdomen; K82.8 Other specified diseases of gallbladder
CPT/HCPCS: 74177; 76705

== ENCOUNTER → 2021-01-06 08:07 | Outpatient (CLI) | payer MEDICARE, OTHER, SELFPAY ==
[2021-01-06 08:52] LABS: Alanine Aminotransferase 18 IU/L (<35); Albumin 4.3 g/dL (3.5-5.0); Albumin Globulin Ratio 1.4 (1.0-2.8); Alkaline Phosphatase 73 U/L (38-126); Aspartate Aminotransferase 28 IU/L (14-36); BUN Creatinine Ratio 25.4 (6-22); Bilirubin Total 0.6 mg/dL (0.2-1.3); Blood Urea Nitrogen 17 mg/dL (7-17); Calcium 9.5 mg/dL (8.4-10.2); Carbon Dioxide 30 mmol/L (22-32); Chloride 107 mmol/L (98-107); Estimated Glomerular Filt Rate > 60.0 mL/min (>60); Glucose 104 mg/dL (80-110); HEMOLYSIS < 15 (0-50); Potassium 4.4 mmol/L (3.4-5.1); Sodium 139 mmol/L (137-145); Total Protein 7.3 g/dL (6.3-8.2)
== END ==
PROVIDERS: PCP Family Medicine; Referring Provider Family Medicine; Visit Provider Family Medicine
DX: Z79.1 Long term (current) use of non-steroidal anti-inflammatories (NSAID) (principal)
CPT/HCPCS: 36415; 80053

== ENCOUNTER → 2021-03-29 07:32 | Outpatient (CLI) | payer MEDICARE, OTHER, SELFPAY ==
--- NOTE | 2021-03-29 | DI.MG.S_ITS ---
BILATERAL DIGITAL SCREENING MAMMOGRAM 3D/2D WITH CAD: 03/29/2021 CLINICAL: Routine screening. Comparison is made to exams dated: 02/15/2020 mammogram, 08/02/2017 mammogram, and 08/12/2015 mammogram - [facility]. There are scattered fibroglandular elements in both breasts. Current study was also evaluated with a Computer Aided Detection (CAD) system. There is a biopsy clip in both breasts. No significant masses, calcifications, or other findings are seen in either breast. There has been no significant interval change. IMPRESSION: NEGATIVE There is no mammographic evidence of malignancy. A 1 year screening mammogram is recommended. This exam was interpreted at Station ID: [id number]. NOTE: For mammograms, a report in lay terms will be sent to the patient. Approximately 15% of breast malignancies will not be visualized mammographically. In the management of a palpable breast mass, a negative mammogram must not discourage biopsy of a clinically suspicious lesion. Electronically Signed By: Alirio Root M.D., jr/jaimie:03/29/2021 11:29:01 letter sent: Normal Exam ACR BI-RADS Category 1: Negative 3341F
== END ==
PROVIDERS: PCP Family Medicine; Referring Provider Family Medicine; Visit Provider Family Medicine
DX: Z12.31 Encounter for screening mammogram for malignant neoplasm of breast (principal)
CPT/HCPCS: 77063; 77067

== ENCOUNTER → 2021-04-19 11:37 | Outpatient (ROUT) | payer MEDICARE, OTHER, SELFPAY ==
[2021-04-19 12:10] LABS: RBC Urine None Seen (0-5/HPF)
[2021-04-19 12:11] LABS: Bacteria Urine None Seen; Culture Indicated Urine Specimen Cultured; WBC Urine 10-30/HPF (0-5/HPF)
== END ==
PROVIDERS: PCP Family Medicine; Visit Provider Family Medicine
DX: R30.0 Dysuria (principal)
CPT/HCPCS: 81015; 87077; 87086; 87186

== ENCOUNTER → 2021-05-04 08:42 | Outpatient (CLI) | payer MEDICARE, OTHER, SELFPAY ==
[2021-05-04 10:12] LABS: Alanine Aminotransferase 19 IU/L (<35); Albumin 4.2 g/dL (3.5-5.0); Albumin Globulin Ratio 1.5 (1.0-2.8); Alkaline Phosphatase 85 U/L (38-126); Aspartate Aminotransferase 30 IU/L (14-36); BUN Creatinine Ratio 22.4 (6-22); Bilirubin Total 0.5 mg/dL (0.2-1.3); Blood Urea Nitrogen 15 mg/dL (7-17); Calcium 9.3 mg/dL (8.4-10.2); Carbon Dioxide 29 mmol/L (22-32); Chloride 101 mmol/L (98-107); Cholesterol 214 mg/dL (140-199); Estimated Glomerular Filt Rate > 60.0 mL/min (>60); Globulin 2.8 g/dL (1.7-4.1); Glucose 112 mg/dL (80-110); HDL Cholesterol 97 mg/dL (40-60); HEMOLYSIS < 15 (0-50); LDL Cholesterol Calculated 103 mg/dL (<100); Potassium 4.4 mmol/L (3.4-5.1); Sodium 134 mmol/L (137-145); Triglycerides 68 mg/dL (35-150)
== END ==
PROVIDERS: PCP Family Medicine; Referring Provider Family Medicine; Visit Provider Family Medicine
DX: E78.5 Hyperlipidemia, unspecified (principal); Z79.1 Long term (current) use of non-steroidal anti-inflammatories (NSAID)
CPT/HCPCS: 36415; 80053; 80061

== ENCOUNTER → 2021-05-19 13:12 | Outpatient (CLI) | payer MEDICARE, OTHER, SELFPAY ==
[2021-05-19 14:34] LABS: BUN Creatinine Ratio 22.1 (6-22); Blood Urea Nitrogen 15 mg/dL (7-17); Calcium 9.6 mg/dL (8.4-10.2); Carbon Dioxide 28 mmol/L (22-32); Chloride 106 mmol/L (98-107); Estimated Glomerular Filt Rate > 60.0 mL/min (>60); Glucose 104 mg/dL (80-110); HEMOLYSIS < 15 (0-50); Sodium 138 mmol/L (137-145)
== END ==
PROVIDERS: PCP Family Medicine; Referring Provider Family Medicine; Visit Provider Family Medicine
DX: E78.5 Hyperlipidemia, unspecified (principal); Z79.1 Long term (current) use of non-steroidal anti-inflammatories (NSAID)
CPT/HCPCS: 36415; 80048

== ENCOUNTER → 2021-12-22 11:43 | Outpatient (CLI) | payer MEDICARE, OTHER, SELFPAY ==
--- NOTE | 2021-12-22 11:44 | DI.RAD.S_ITS ---
PROCEDURE: XR SHOULDER LT MIN 2V INDICATIONS: eval Left shoulder pain TECHNIQUE: 3 views of the shoulder were acquired. COMPARISON: [facility], , SHOULDER MINIMUM 2VIEW RIGHT, 11/30/2008, 13:34. FINDINGS: Bones: No fractures or dislocations. Gwpc-sm-iydrhzrh acromioclavicular joint and glenohumeral joint osteoarthritic changes are seen. No suspicious bony lesions. Visualized ribs appear intact. Soft tissues: No suspicious soft tissue calcifications. 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 No shoulder fracture or dislocation. Dictated by: Scotty Ontiveros M.D. on 12/22/2021 at 12:18 Approved by: Scotty Ontiveros M.D. on 12/22/2021 at 12:18
== END ==
PROVIDERS: PCP Family Medicine; Referring Provider Registered Nurse Diabetes Educator; Visit Provider Registered Nurse Diabetes Educator
DX: M25.512 Pain in left shoulder (principal); M19.012 Primary osteoarthritis, left shoulder
CPT/HCPCS: 73030

== ENCOUNTER → 2022-03-01 09:56 | Outpatient (CLI) | payer MEDICARE, OTHER, SELFPAY | PROVIDERS: PCP Family Medicine; Referring Provider Family Medicine; Visit Provider Family Medicine | DX: Z13.820 Encounter for screening for osteoporosis (principal); M85.88 Other specified disorders of bone density and structure, other site; Z78.0 Asymptomatic menopausal state | CPT/HCPCS: 77080 ==

== ENCOUNTER → 2022-03-22 13:06 | Outpatient (CLI) | payer MEDICARE, OTHER, SELFPAY ==
[2022-03-22 14:08] LABS: COVID-19 CEPHEID 4-PLEX PCR Negative (Negative); Influenza A - CEPHEID Flu A NEGATIVE (NEGATIVE); Influenza B - CEPHEID Flu B NEGATIVE (NEGATIVE); Respiratory Syncytial Virus POSITIVE (Negative)
== END ==
PROVIDERS: PCP Family Medicine; Visit Provider Nurse Practitioner Family
DX: R05.9 Cough, unspecified (principal); Z20.822 Contact with and (suspected) exposure to COVID-19
CPT/HCPCS: 0241U

== ENCOUNTER → 2022-04-23 08:24 | Outpatient (CLI) | payer MEDICARE, OTHER, SELFPAY ==
--- NOTE | 2022-04-23 | DI.MG.S_ITS ---
BILATERAL DIGITAL SCREENING MAMMOGRAM 3D/2D WITH CAD: 04/23/2022 CLINICAL: Routine screening. Comparison is made to exams dated: 03/29/2021 mammogram, 02/15/2020 mammogram, and 01/22/2019 mammogram - [facility]. There are scattered areas of fibroglandular density in both breasts (category b / 25%-50% glandular tissue). Current study was also evaluated with a Computer Aided Detection (CAD) system. There is a biopsy clip in both breasts. No significant masses, calcifications, or other findings are seen in either breast. There has been no significant interval change. IMPRESSION: NEGATIVE There is no mammographic evidence of malignancy. A 1 year screening mammogram is recommended. Based on the Tyrer Cuzick model (a risk assessment model) the patient's lifetime risk is 5.6% and her 10 year risk is 3.8%. According to the ACR, ACS, and NCCN guidelines, an annual breast MRI exam along with mammogram is recommended if the patient's lifetime risk is 20% or greater. This exam was interpreted at Station ID: [id number]. NOTE: For mammograms, a report in lay terms will be sent to the patient. Approximately 15% of breast malignancies will not be visualized mammographically. In the management of a palpable breast mass, a negative mammogram must not discourage biopsy of a clinically suspicious lesion. Electronically Signed By: Marc lilly/jaimie:04/23/2022 14:11:48 letter sent: Normal Exam ACR BI-RADS Category 1: Negative 3341F
== END ==
PROVIDERS: PCP Family Medicine; Referring Provider Family Medicine; Visit Provider Family Medicine
DX: Z12.31 Encounter for screening mammogram for malignant neoplasm of breast (principal)
CPT/HCPCS: 77063; 77067

== ENCOUNTER → 2022-05-22 09:23 | Outpatient (CLI) | payer MEDICARE, OTHER, SELFPAY ==
[2022-05-22 11:12] LABS: Hemoglobin A1C% w Est Avg Glu 5.6 % (4.0-6.0)
[2022-05-22 11:13] LABS: Alanine Aminotransferase 21 IU/L (<35); Albumin 4.3 g/dL (3.5-5.0); Albumin Globulin Ratio 1.3 (1.0-2.8); Alkaline Phosphatase 75 U/L (38-126); Aspartate Aminotransferase 26 IU/L (14-36); BUN Creatinine Ratio 18.8 (6-22); Bilirubin Total 0.6 mg/dL (0.2-1.3); Blood Urea Nitrogen 12 mg/dL (7-17); Calcium 9.1 mg/dL (8.4-10.2); Carbon Dioxide 28 mmol/L (22-32); Chloride 104 mmol/L (98-107); Cholesterol 229 mg/dL (140-199); Estimated Glomerular Filt Rate > 60 mL/min (>60); Globulin 3.2 g/dL (1.7-4.1); Glucose 108 mg/dL (80-110); HDL Cholesterol 93 mg/dL (40-60); HEMOLYSIS < 15 (0-50); LDL Cholesterol Calculated 122 mg/dL (<100); Potassium 4.2 mmol/L (3.4-5.1); Sodium 139 mmol/L (137-145); Total Protein 7.5 g/dL (6.3-8.2); Triglycerides 72 mg/dL (35-150)
== END ==
PROVIDERS: PCP Family Medicine; Referring Provider Family Medicine; Visit Provider Family Medicine
DX: R73.9 Hyperglycemia, unspecified (principal); E78.5 Hyperlipidemia, unspecified
CPT/HCPCS: 36415; 80053; 80061; 83036

== ENCOUNTER → 2022-07-19 16:55 | Outpatient (CLI) | payer MEDICARE, OTHER, SELFPAY ==
--- NOTE | 2022-07-19 16:56 | DI.RAD.S_ITS ---
PROCEDURE: XR ANKLE LT MIN 3V INDICATIONS: Left ankle swelling TECHNIQUE: 3 views of the ankle were acquired. COMPARISON: None. FINDINGS: Bones: No acute fractures or dislocations. Ankle mortise is normally aligned. No suspicious bony lesions. Moderate-severe degenerative changes of the tibiotalar joint. Mild degenerative changes of the dorsal left midfoot. Small plantar calcaneal enthesophyte. Soft tissues: No tibiotalar joint effusion. Achilles tendon appears normal. Moderate soft tissue swelling overlying the lateral malleolus. IMPRESSION: Moderate lateral malleolar soft tissue swelling without underlying fracture or dislocation. Moderate-severe degenerative changes of the tibiotalar joint. If there are persistent symptoms or clinical suspicion for pathology, then repeat radiographs or advanced imaging (CT or MRI) may be considered for further evaluation. Dictated by: Marc Carroll M.D. on 07/20/2022 at 11:06 Approved by: Marc Carroll M.D. on 07/20/2022 at 11:08
== END ==
PROVIDERS: PCP Family Medicine; Referring Provider Nurse Practitioner Family; Visit Provider Nurse Practitioner Family
DX: M25.472 Effusion, left ankle (principal); M77.32 Calcaneal spur, left foot
CPT/HCPCS: 73610

== ENCOUNTER → 2022-09-05 10:01 | Outpatient (CLI) | payer MEDICARE, OTHER, SELFPAY ==
--- NOTE | 2022-09-05 10:03 | DI.MG.S_ITS ---
UNILATERAL LEFT DIGITAL DIAGNOSTIC MAMMOGRAM 3D/2D: 09/05/2022 CLINICAL: Left breast lump. Comparison is made to exams dated: 04/23/2022 mammogram, 03/29/2021 mammogram, and 02/15/2020 mammogram - [facility]. There are scattered areas of fibroglandular density in the left breast (category b / 25%-50% glandular tissue). No significant masses, calcifications, or other findings are seen in the breast. Left biopsy clip noted. IMPRESSION: INCOMPLETE: NEEDS ADDITIONAL IMAGING EVALUATION No mammographic evidence of malignancy. A targeted ultrasound is recommended and will immediately follow. Based on the Tyrer Cuzick model (a risk assessment model) the patient's lifetime risk is 5.6% and her 10 year risk is 3.8%. According to the ACR, ACS, and NCCN guidelines, an annual breast MRI exam along with mammogram is recommended if the patient's lifetime risk is 20% or greater. This exam was interpreted at Station ID: [id number]. NOTE: For mammograms, a report in lay terms will be sent to the patient. Approximately 15% of breast malignancies will not be visualized mammographically. In the management of a palpable breast mass, a negative mammogram must not discourage biopsy of a clinically suspicious lesion. Electronically Signed By: Dario Dean M.D. slc/:09/05/2022 10:36:40 ACR BI-RADS Category 0: Incomplete 3340F
--- NOTE | 2022-09-05 10:03 | DI.US.S_ITS ---
LIMITED ULTRASOUND OF LEFT BREAST: 09/05/2022 CLINICAL: Palpable left breast lump and focal pain. Comparison is made to exams dated: 09/05/2022 mammogram, 04/23/2022 mammogram, 03/29/2021 mammogram, 02/15/2020 mammogram, 02/12/2019 mammogram, and 02/12/2019 ultrasound biopsy - [facility]. Color flow and real-time ultrasound of the left breast were performed. White scale images of the real-time examination were reviewed. No significant abnormalities were seen sonographically in the left breast at the palpable abnormality. Prior biopsy clip is noted nearby the palpable site. IMPRESSION: BENIGN There is no sonographic evidence of malignancy. No mass at the palpable abnormality. Exam findings were conveyed to the patient. Patient is advised to monitor for significant change. Clinical follow-up as needed. Return to screening mammogram is recommended. 04/24/2023. This exam was interpreted at Station ID: [id number]. Electronically Signed By: Dario Dean M.D. slc/:09/05/2022 11:59:33 letter sent: Normal Exam Ultrasound BI-RADS: 2 Benign
== END ==
PROVIDERS: PCP Family Medicine; Referring Provider Family Medicine; Visit Provider Family Medicine
DX: N63.23 Unspecified lump in the left breast, lower outer quadrant (principal); N63.20 Unspecified lump in the left breast, unspecified quadrant
CPT/HCPCS: 76642; 77065; G0279

== ENCOUNTER → 2022-10-06 07:33 | Outpatient (CLI) | payer MEDICARE, OTHER, SELFPAY ==
[2022-10-06 08:17] LABS: Influenza A - CEPHEID Flu A NEGATIVE (NEGATIVE); Influenza B - CEPHEID Flu B NEGATIVE (NEGATIVE); Respiratory Syncytial Virus Negative (Negative)
[2022-10-06 08:20] LABS: COVID-19 CEPHEID 4-PLEX PCR Negative (Negative)
== END ==
PROVIDERS: PCP Family Medicine; Visit Provider Nurse Practitioner Family
DX: R11.0 Nausea (principal); R51.9 Headache, unspecified; Z20.822 Contact with and (suspected) exposure to COVID-19
CPT/HCPCS: 0241U; 87086

== ENCOUNTER → 2022-10-10 10:36 | Outpatient (CLI) | payer MEDICARE, OTHER, SELFPAY ==
--- NOTE | 2022-10-10 | DI.RAD.S_ITS ---
PROCEDURE: XR ANKLE LT MIN 3V INDICATIONS: Pain in left ankle and joints of left foot TECHNIQUE: 3 views of the ankle were acquired. COMPARISON: [facility], CR, XR ANKLE LT MIN 3V, 07/19/2022, 16:59. FINDINGS: Bones: No acute fracture or dislocation identified. Moderate-severe tibiotalar joint degenerative changes redemonstrated with joint space narrowing, spurring, subchondral cystic change. Soft tissues: No tibiotalar joint effusion. IMPRESSION: No acute fracture identified. Tibiotalar degenerative changes present as before. If symptoms persist, follow-up radiographs and/or CT or MRI may be helpful for further evaluation. Dictated by: Hugo Freeman M.D. on 10/10/2022 at 15:38 Approved by: Hugo Freeman M.D. on 10/10/2022 at 15:43
== END ==
PROVIDERS: PCP Family Medicine; Referring Provider Podiatrist; Visit Provider Podiatrist
DX: M25.572 Pain in left ankle and joints of left foot (principal)
CPT/HCPCS: 73610

== ENCOUNTER → 2022-10-18 07:41 | Outpatient (CLI) | payer MEDICARE, OTHER, SELFPAY ==
--- NOTE | 2022-10-18 | DI.US.S_ITS ---
PROCEDURE: US ARTERIAL DUPLEX LE BI INDICATIONS: PAIN IN LEFT LOWER LEG TECHNIQUE: Color and pulse Doppler interrogation was performed of both lower extremity arterial systems, with image documentation. COMPARISON: None. FINDINGS: Right lower extremity: Common femoral artery: 152.9 cm/sec, with biphasic flow. Deep femoral artery: 91.0 cm/sec, with monophasic flow. Proximal superficial femoral artery: 160.1 cm/sec, with biphasic flow. Mid superficial femoral artery: 83.9 cm/sec, with biphasic flow. Distal superficial femoral artery: 115 cm/sec, with biphasic flow. Popliteal artery: 72.2 cm/sec, with biphasic flow. Posterior tibial artery: 62.4 cm/sec, with biphasic flow. Anterior tibial artery/dorsalis pedis: 59.1 cm/sec, with biphasic flow. White-scale imaging description: No focal hemodynamically significant stenosis Left lower extremity: Common femoral artery: 209.3 cm/sec, with biphasic flow. Deep femoral artery: 107.3 cm/sec, with monophasic flow. Proximal superficial femoral artery: 142.1 cm/sec, with by phase flow. Mid superficial femoral artery: 98.9 cm/sec, with biphasic flow. Distal superficial femoral artery: 109.3 cm/sec, with biphasic flow. Popliteal artery: 85.2 cm/sec, with biphasic flow. Posterior tibial artery: 68.9 cm/sec, with biphasic flow. Anterior tibial artery/dorsalis pedis: 86.8 cm/sec, with biphasic flow. White-scale imaging description: No focal hemodynamically significant stenosis. IMPRESSION: Biphasic waveforms throughout the bilateral lower extremity arteries. No focal hemodynamically significant stenosis detected. Dictated by: Mayra Boles M.D. on 10/18/2022 at 11:57 Approved by: Mayra Boles M.D. on 10/18/2022 at 12:02
== END ==
PROVIDERS: PCP Family Medicine; Referring Provider Podiatrist; Visit Provider Podiatrist
DX: M79.662 Pain in left lower leg (principal)
CPT/HCPCS: 93925

== ENCOUNTER → 2023-01-24 07:05 | Outpatient (CLI) | payer MEDICARE, OTHER, SELFPAY | PROVIDERS: PCP Family Medicine; Visit Provider Family Medicine | DX: R30.0 Dysuria (principal) | CPT/HCPCS: 87086 ==

== ENCOUNTER → 2023-02-20 07:13 | Outpatient (CLI) | payer MEDICARE, OTHER, SELFPAY ==
[2023-02-20 08:19] LABS: Hemoglobin A1C% w Est Avg Glu 5.7 % (4.0-6.0)
[2023-02-20 08:31] LABS: Alanine Aminotransferase 17 IU/L (<35); Albumin 4.2 g/dL (3.5-5.0); Albumin Globulin Ratio 1.4 (1.0-2.8); Alkaline Phosphatase 67 U/L (38-126); Aspartate Aminotransferase 26 IU/L (14-36); Bilirubin Total 0.6 mg/dL (0.2-1.3); Blood Urea Nitrogen 14 mg/dL (7-17); Calcium 9.7 mg/dL (8.4-10.2); Carbon Dioxide 27 mmol/L (22-32); Chloride 102 mmol/L (98-107); Cholesterol 245 mg/dL (140-199); Estimated Glomerular Filt Rate > 60 mL/min (>60); Glucose 114 mg/dL (80-110); HDL Cholesterol 93 mg/dL (40-60); HEMOLYSIS < 15 (0-50); LDL Cholesterol Calculated 136 mg/dL (<100); Potassium 4.3 mmol/L (3.4-5.1); Sodium 137 mmol/L (137-145); Total Protein 7.2 g/dL (6.3-8.2); Triglycerides 81 mg/dL (35-150)
[2023-02-20 08:35] LABS: High Sensitivity CRP - Cardiac 1.8 mg/L (1.0-3.0)
[2023-02-20 10:41] LABS: Creatinine Urine Random 35.8 mg/dL
[2023-02-20 10:46] LABS: Microalbumin Urine Random < 0.6 mg/dL (0-1.6)
== END ==
PROVIDERS: PCP Family Medicine; Referring Provider Family Medicine; Visit Provider Family Medicine
DX: R73.9 Hyperglycemia, unspecified (principal); E66.9 Obesity, unspecified; R03.0 Elevated blood-pressure reading, without diagnosis of hypertension; E78.5 Hyperlipidemia, unspecified
CPT/HCPCS: 36415; 80053; 80061; 82043; 82570; 83036; 86140

== ENCOUNTER → 2023-03-20 07:49 | Outpatient (CLI) | payer MEDICARE, OTHER, SELFPAY ==
--- NOTE | 2023-03-21 10:27 | DI.NM.S_ITS ---
DATE OF SERVICE: 03/20/2023 PROCEDURE: Exercise treadmill stress test without imaging. ORDERING PROVIDER: Edel Hamlin D.O. INDICATIONS: The patient is a 72-year-old hypertensive female with occasional atypical chest discomfort. FINDINGS: 1. The patient was able to exercise for 6 minutes and 1 second on a standard Suman protocol suggesting fairly good exercise capacity with an RICK of -7%, achieving 6.1 METS. 2. She had a slightly accentuated heart rate response to exercise with a resting heart rate of 99 BPM increasing to a maximum of 157 BPM (106% of her predicted maximum). She had a mild hypertensive blood pressure response with a resting blood pressure of 150/100 increasing to a maximum of 212/90. 3. She had no chest discomfort or other anginal symptoms. 4. Her resting ECG showed sinus rhythm with normal ST segments. There were no significant ST-segment shifts or arrhythmias with stress. IMPRESSION: 1. Normal exercise treadmill stress test for ischemia. 2. Fairly good exercise capacity without angina or arrhythmias but a mild hypertensive blood pressure response to exercise with a slightly accentuated heart rate response. Rosas Hernandez - YUN/natasha/WIN doc#: [id number]/job#: [id number] dd: 03/20/2023 16:14:00 dt: 03/20/2023 22:06:00 DICTATING /COPIES TO: Nehemias Hill MD; Edel Hamlin M.D. COPIES MNE: SANDRA;
== END ==
PROVIDERS: PCP Family Medicine; Referring Provider Family Medicine; Visit Provider Family Medicine
DX: R07.9 Chest pain, unspecified (principal)
CPT/HCPCS: 93017

== ENCOUNTER → 2023-04-26 08:00 | Outpatient (CLI) | payer MEDICARE, OTHER, SELFPAY ==
--- NOTE | 2023-04-26 08:03 | DI.MG.S_ITS ---
BILATERAL DIGITAL SCREENING MAMMOGRAM 3D/2D WITH CAD: 04/26/2023 CLINICAL: Routine screening. Comparison is made to exams dated: 04/23/2022 mammogram, 03/29/2021 mammogram, 02/15/2020 mammogram, and 09/05/2022 mammogram - [facility]. There are scattered areas of fibroglandular density in both breasts (category b / 25%-50% glandular tissue). Current study was also evaluated with a Computer Aided Detection (CAD) system. There is a biopsy clip in both breasts. No significant masses, calcifications, or other findings are seen in either breast. There has been no significant interval change. IMPRESSION: NEGATIVE There is no mammographic evidence of malignancy. A 1 year screening mammogram is recommended. Future imaging is recommended as follows: 09/06/2023 screening mammogram. Based on the Tyrer Cuzick model (a risk assessment model) the patient's lifetime risk is 5.2% and her 10 year risk is 3.9%. According to the ACR, ACS, and NCCN guidelines, an annual breast MRI exam along with mammogram is recommended if the patient's lifetime risk is 20% or greater. This exam was interpreted at Station ID: [id number]. NOTE: For mammograms, a report in lay terms will be sent to the patient. Approximately 15% of breast malignancies will not be visualized mammographically. In the management of a palpable breast mass, a negative mammogram must not discourage biopsy of a clinically suspicious lesion. Electronically Signed By: Dario delcid/jaimie:04/26/2023 12:37:52 letter sent: Normal Exam ACR BI-RADS Category 1: Negative 3341F
== END ==
LOC: MAMMO 08:02
PROVIDERS: PCP Family Medicine; Referring Provider Family Medicine; Visit Provider Family Medicine
DX: Z12.31 Encounter for screening mammogram for malignant neoplasm of breast (principal); R92.323 Mammographic fibroglandular density, bilateral breasts
CPT/HCPCS: 77063; 77067

== ENCOUNTER → 2023-09-21 19:49 | Outpatient (ROUT) | payer MEDICARE, OTHER, SELFPAY ==
[2023-09-21 20:41] LABS: COVID-19 CEPHEID 4-PLEX PCR POSITIVE (Negative); Influenza A - CEPHEID Flu A NEGATIVE (NEGATIVE); Influenza B - CEPHEID Flu B NEGATIVE (NEGATIVE); Respiratory Syncytial Virus Negative (Negative)
== END ==
PROVIDERS: PCP Family Medicine; Visit Provider Nurse Practitioner Family
DX: J02.9 Acute pharyngitis, unspecified (principal)
CPT/HCPCS: 0241U; 87070

== ENCOUNTER → 2023-10-25 11:13 | Outpatient (CLI) | payer MEDICARE, OTHER, SELFPAY | PROVIDERS: PCP Family Medicine; Visit Provider Nurse Practitioner Family | DX: R82.90 Unspecified abnormal findings in urine (principal) | CPT/HCPCS: 87086 ==

== ENCOUNTER → 2023-10-30 07:03 | Outpatient (CLI) | payer MEDICARE, OTHER, SELFPAY ==
[2023-10-30 08:23] LABS: Add Manual Diff / Slide Review NO; Basophils Absolute Auto 0 /uL (0-100); Basophils Percent Auto 0.7 % (0-2); Eosinophils Absolute Auto 100 /uL (0-450); Eosinophils Percent Auto 2.1 % (2-4); Hematocrit 37.8 % (36-46); Hemoglobin 12.6 g/dL (12.0-16.0); Lymphocytes Absolute Auto 1900 /uL (1100-4500); Lymphocytes Percent Auto 32.5 % (25-40); Mean Corpuscular HGB Conc 33.4 % (30-36); Mean Corpuscular Volume 89.8 fL (80-100); Monocytes Absolute Auto 400 /uL (0-900); Monocytes Percent Auto 7.2 % (3-14); Neutrophils Absolute Auto 3400 /uL (1500-7000); Neutrophils Percent Auto 57.5 % (50-75); Platelet Count 280 X10^3/uL (150-400); Red Blood Cell Count 4.21 X10^6/uL (4.0-5.2); Red Cell Distribution Width 13.6 % (11.6-14.8); White Blood Cell Count 5.9 X10^3/uL (4.5-11.0)
[2023-10-30 08:41] LABS: Alanine Aminotransferase 15 IU/L (<35); Albumin 4.3 g/dL (3.5-5.0); Albumin Globulin Ratio 1.6 (1.0-2.8); Alkaline Phosphatase 67 U/L (38-126); Aspartate Aminotransferase 23 IU/L (14-36); BUN Creatinine Ratio 17.9 (6-22); Bilirubin Total 0.5 mg/dL (0.2-1.3); Blood Urea Nitrogen 14 mg/dL (7-17); Calcium 9.1 mg/dL (8.4-10.2); Carbon Dioxide 27 mmol/L (22-32); Chloride 106 mmol/L (98-107); Estimated Glomerular Filt Rate > 60 mL/min (>60); Globulin 2.7 g/dL (1.7-4.1); Glucose 106 mg/dL (80-110); HEMOLYSIS < 15 (0-50); Lipase 202 U/L (23-300); Potassium 4.5 mmol/L (3.4-5.1); Sodium 139 mmol/L (137-145)
[2023-10-30 08:46] LABS: High Sensitivity CRP - Cardiac 0.4 mg/L (1.0-3.0)
== END ==
PROVIDERS: PCP Family Medicine; Referring Provider Family Medicine; Visit Provider Family Medicine
DX: R10.9 Unspecified abdominal pain (principal); E78.5 Hyperlipidemia, unspecified; R73.9 Hyperglycemia, unspecified
CPT/HCPCS: 36415; 80053; 83690; 85025; 86140

== ENCOUNTER → 2023-11-06 07:09 | Outpatient (CLI) | payer MEDICARE, OTHER, SELFPAY ==
--- NOTE | 2023-11-06 07:11 | DI.US.S_ITS ---
PROCEDURE: US ABDOMEN COMPLETE INDICATIONS: abdominal pain TECHNIQUE: Real-time scanning was performed of the abdominal and retroperitoneal organs, with image documentation. COMPARISON: [facility], , US ABDOMEN LIMITED, 06/17/2020, 7:23. FINDINGS: Liver: Liver is normal in size and homogeneous in echotexture. Gallbladder: Gallbladder is distended. There is minimal sludge present without evidence of calculi. No pericholecystic fluid. Biliary ducts: Intrahepatic bile ducts are non-dilated. Pancreas: Visualized portions of the pancreas are sonographically normal. Spleen: Spleen is normal in size and homogeneous in echotexture. Kidneys: Kidneys are normal in size and echotexture. Right kidney measures 9.6 cm long; left kidney measures 8.9 cm long. No hydronephrosis or nephrolithiasis. No solid masses. Aorta: Visualized aorta is normal in caliber at less than 3 cm. Iliacs: Proximal common iliac arteries are normal in caliber at less than 2.5 cm. IVC: Intrahepatic inferior vena cava is patent. Miscellaneous: No free abdominal fluid. IMPRESSION: Minimal sludge in the gallbladder. Examination is otherwise unremarkable. Dictated by: Rahul Sutton M.D. on 11/06/2023 at 10:51 Approved by: Rahul Sutton M.D. on 11/06/2023 at 11:12
== END ==
PROVIDERS: PCP Family Medicine; Referring Provider Family Medicine; Visit Provider Family Medicine
DX: R10.9 Unspecified abdominal pain (principal); E78.5 Hyperlipidemia, unspecified; R73.9 Hyperglycemia, unspecified
CPT/HCPCS: 76700

== ENCOUNTER → 2024-01-08 08:02 | Outpatient (CLI) | payer MEDICARE, OTHER, SELFPAY | PROVIDERS: PCP Family Medicine; Visit Provider Nurse Practitioner Family | DX: R30.0 Dysuria (principal) | CPT/HCPCS: 87086 ==

== ENCOUNTER → 2024-03-02 16:43 | Outpatient (CLI) | payer MEDICARE, OTHER, SELFPAY ==
[2024-03-02 17:15] LABS: Add Manual Diff / Slide Review NO; Basophils Absolute Auto 0 /uL (0-100); Basophils Percent Auto 0.5 % (0-2); Eosinophils Absolute Auto 200 /uL (0-450); Eosinophils Percent Auto 2.5 % (2-4); Hematocrit 38.7 % (36-46); Hemoglobin 12.7 g/dL (12.0-16.0); Lymphocytes Absolute Auto 2700 /uL (1100-4500); Lymphocytes Percent Auto 34.3 % (25-40); Mean Corpuscular HGB Conc 32.8 % (30-36); Mean Corpuscular Hemoglobin 29.6 PG (26-34); Mean Corpuscular Volume 90.4 fL (80-100); Monocytes Absolute Auto 600 /uL (0-900); Neutrophils Absolute Auto 4300 /uL (1500-7000); Neutrophils Percent Auto 54.7 % (50-75); Platelet Count 316 X10^3/uL (150-400); Red Blood Cell Count 4.28 X10^6/uL (4.0-5.2); Red Cell Distribution Width 14.3 % (11.6-14.8); White Blood Cell Count 7.8 X10^3/uL (4.5-11.0)
[2024-03-02 17:44] LABS: Alanine Aminotransferase 28 IU/L (<35); Albumin 4.4 g/dL (3.5-5.0); Albumin Globulin Ratio 1.2 (1.0-2.8); Alkaline Phosphatase 85 U/L (38-126); Aspartate Aminotransferase 37 IU/L (14-36); BUN Creatinine Ratio 23.8 (6-22); Bilirubin Total 0.4 mg/dL (0.2-1.3); Blood Urea Nitrogen 19 mg/dL (7-17); Calcium 9.3 mg/dL (8.4-10.2); Carbon Dioxide 28 mmol/L (22-32); Chloride 105 mmol/L (98-107); Estimated Glomerular Filt Rate > 60 mL/min (>60); Globulin 3.6 g/dL (1.7-4.1); Glucose 111 mg/dL (80-110); HEMOLYSIS < 15 (0-50); Lipase 252 U/L (23-300); Potassium 3.9 mmol/L (3.4-5.1); Sodium 136 mmol/L (137-145)
[2024-03-02 18:54] LABS: Appearance Urine UA CLEAR; Bilirubin Urine UA NEGATIVE (NEGATIVE); Color Urine UA YELLOW; Glucose Urine UA NEGATIVE (Negative); Ketones Urine UA NEGATIVE (NEGATIVE); Leukocyte Esterase Urine UA NEGATIVE (NEGATIVE); Nitrite Urine UA NEGATIVE (Negative); Occult Blood Urine UA 1+ (Negative); Protein Urine UA NEGATIVE (Negative); Specific Gravity Urine UA 1.015 (1.000-1.035); Urobilinogen Urine UA 0.2 E.U./dL (0.2)
[2024-03-02 19:01] LABS: Bacteria Urine Occasional (0-1); Culture Indicated Urine Cult Not Indicated; RBC Urine 1-5/HPF (0-5/HPF); Squamous Epithelial Cell Urine 0-1 /HPF (0-5/HPF); Urine Volume 10mL (spun); WBC Urine 1-5/HPF (0-5/HPF)
== END ==
PROVIDERS: PCP Family Medicine; Referring Provider Family Medicine; Visit Provider Family Medicine
DX: R11.0 Nausea (principal); N39.0 Urinary tract infection, site not specified; Z87.440 Personal history of urinary (tract) infections; K21.9 Gastro-esophageal reflux disease without esophagitis; K44.9 Diaphragmatic hernia without obstruction or gangrene
CPT/HCPCS: 36415; 80053; 81001; 83690; 85025

== ENCOUNTER → 2024-05-02 | Outpatient (CLI) | payer MEDICARE, OTHER, SELFPAY ==
--- NOTE | 2024-05-02 | DI.MG.S_ITS ---
BILATERAL DIGITAL SCREENING MAMMOGRAM 3D/2D WITH CAD: 05/02/2024 CLINICAL: Routine screening. Comparison is made to exams dated: 04/26/2023 mammogram, 04/23/2022 mammogram, and 03/29/2021 mammogram - [facility]. There are scattered areas of fibroglandular density (category b / 25%-50% glandular tissue). Current study was also evaluated with a Computer Aided Detection (CAD) system. There is a biopsy clip in both breasts. No significant masses, calcifications, or other findings are seen in either breast. There has been no significant interval change. IMPRESSION: NEGATIVE There is no mammographic evidence of malignancy. A 1 year screening mammogram is recommended. Based on the Tyrer Cuzick model (a risk assessment model) the patient's lifetime risk is 4.9% and her 10 year risk is 4.0%. According to the ACR, ACS, and NCCN guidelines, an annual breast MRI exam along with mammogram is recommended if the patient's lifetime risk is 20% or greater. This exam was interpreted at Station ID: [id number]. NOTE: For mammograms, a report in lay terms will be sent to the patient. Approximately 15% of breast malignancies will not be visualized mammographically. In the management of a palpable breast mass, a negative mammogram must not discourage biopsy of a clinically suspicious lesion. Electronically Signed By: Hugo summers/jaimie:05/14/2024 10:53:07 letter sent: Normal Exam ACR BI-RADS Category 1: Negative
== END ==
PROVIDERS: PCP Family Medicine; Referring Provider Family Medicine; Visit Provider Family Medicine
DX: Z12.31 Encounter for screening mammogram for malignant neoplasm of breast (principal)
CPT/HCPCS: 77063; 77067

== ENCOUNTER → 2024-05-23 09:41 | Outpatient (CLI) | payer MEDICARE, OTHER, SELFPAY ==
--- NOTE | 2024-05-23 09:44 | DI.CT.S_ITS ---
PROCEDURE: CT ABDOMEN PELVIS W CON INDICATIONS: persistent abdominal pain and naus, r/o diverticulitis, mass TECHNIQUE: After the administration of intravenous contrast, axial sections acquired from the lung bases to the pubic symphysis. Coronal and sagittal reformats were performed. For radiation dose reduction, the following was used: automated exposure control, adjustment of mA and/or kV according to patient size. COMPARISON: [facility], CT, CT ABDOMEN PELVIS W CON, 06/17/2020, 8:36. FINDINGS: Image quality: Diagnostic Lower chest: Small left Bochdalek's hernia containing mostly fat. Lingular atelectasis/scarring. Small hiatal hernia and nonspecific mild distal esophageal wall thickening. Borderline heart size. Liver: Subcentimeter lesions are too small to characterize in the liver, probably cysts, likely stable from prior imaging Subtle hypervascularity is seen in the posterior portion of segment 7 measuring 2.7 cm. Gallbladder and biliary system: Unremarkable, nondilated Pancreas: No ductal dilation Spleen: Nonenlarged Adrenals: Similar moderate left and mild right adrenal thickening compared to prior imaging Kidneys: Subcentimeter lesions are too small to characterize, usually cysts. No hydronephrosis. Vessels and lymph nodes: The main portal vein appears patent. No abdominal aortic aneurysm or pathologic lymphadenopathy by size criteria. Bowel and peritoneum: Proximal gastric wall thickening. Posterior gastric diverticulum. No small bowel obstruction. There are colonic diverticula distally. Overall fecal loading is [id number]. No drainable ascites or abscess. The appendix is nondilated Body wall: Unremarkable Pelvis: Bladder is unremarkable Reproductive organs are unremarkable on limited CT evaluation Bones: There are degenerative changes. IMPRESSION: Gastroesophageal wall thickening possibly gastroesophagitis. Small hiatal hernia. There is no discrete suspicious mass identified on CT. No lymphadenopathy by size criteria. If there is further concern, consider endoscopy correlation. Subtle hypervascularity is seen in the posterior portion of hepatic segment 7, possibly representing hemangioma. If there is underlying concern or history of malignancy, this could be confirmed on liver MRI. Adrenal thickening similar to prior, probably small adenomas versus hyperplasia. Other findings above Dictated by: Matthew Urbina M.D. on 05/23/2024 at 13:25 Approved by: Matthew Urbina M.D. on 05/23/2024 at 13:34
[2024-05-23 10:31] LABS: Alanine Aminotransferase 27 IU/L (<35); Albumin 4.6 g/dL (3.5-5.0); Albumin Globulin Ratio 1.4 (1.0-2.8); Alkaline Phosphatase 85 U/L (38-126); Aspartate Aminotransferase 31 IU/L (14-36); BUN Creatinine Ratio 18.5 (6-22); Bilirubin Total 0.5 mg/dL (0.2-1.3); Blood Urea Nitrogen 15 mg/dL (7-17); Calcium 9.9 mg/dL (8.4-10.2); Carbon Dioxide 29 mmol/L (22-32); Chloride 103 mmol/L (98-107); Cholesterol 262 mg/dL (140-199); Estimated Glomerular Filt Rate > 60 mL/min (>60); Globulin 3.4 g/dL (1.7-4.1); Glucose 128 mg/dL (80-110); HDL Cholesterol 107 mg/dL (40-60); HEMOLYSIS < 15 (0-50); LDL Cholesterol Calculated 135 mg/dL (<100); Lipase 150 U/L (23-300); Potassium 4.4 mmol/L (3.4-5.1); Sodium 135 mmol/L (137-145); Triglycerides 101 mg/dL (35-150)
== END ==
PROVIDERS: PCP Family Medicine; Referring Provider Family Medicine; Visit Provider Family Medicine
DX: K44.9 Diaphragmatic hernia without obstruction or gangrene (principal); K31.4 Gastric diverticulum; Q79.1 Other congenital malformations of diaphragm; K57.90 Diverticulosis of intestine, part unspecified, without perforation or abscess without bleeding; R10.9 Unspecified abdominal pain; E78.2 Mixed hyperlipidemia
CPT/HCPCS: 36415; 74177; 80053; 80061; 83690; Q9967

== ENCOUNTER → 2024-06-23 08:06 | Outpatient (CLI) | payer MEDICARE, OTHER, SELFPAY ==
[2024-06-23 09:22] LABS: Lipase 165 U/L (23-300)
[2024-06-24 07:09] LABS: Interpretation Negative (Negative)
== END ==
PROVIDERS: PCP Family Medicine; Referring Provider Family Medicine; Visit Provider Family Medicine
DX: A04.8 Other specified bacterial intestinal infections (principal); K58.0 Irritable bowel syndrome with diarrhea; R10.9 Unspecified abdominal pain
CPT/HCPCS: 36415; 83013; 83690

== ENCOUNTER → 2025-03-23 09:59 | Outpatient (CLI) | payer MEDICARE, OTHER, SELFPAY ==
[2025-03-23 10:37] LABS: Add Manual Diff / Slide Review NO; Hematocrit 40.8 % (36-46); Hemoglobin 13.5 g/dL (12.0-16.0); Lymphocytes Absolute Auto 1700 /uL (1100-4500); Mean Corpuscular HGB Conc 33.0 % (30-36); Mean Corpuscular Hemoglobin 29.3 PG (26-34); Mean Corpuscular Volume 88.6 fL (80-100); Platelet Count 342 X10^3/uL (150-400)
[2025-03-23 10:49] LABS: Hemoglobin A1C% w Est Avg Glu 5.6 % (4.0-6.0)
[2025-03-23 10:58] LABS: Alanine Aminotransferase 27 IU/L (<35); Albumin 4.6 g/dL (3.5-5.0); Albumin Globulin Ratio 1.5 (1.0-2.8); Alkaline Phosphatase 117 U/L (38-126); Blood Urea Nitrogen 17 mg/dL (7-17); Calcium 9.6 mg/dL (8.4-10.2); Carbon Dioxide 26 mmol/L (22-32); Chloride 105 mmol/L (98-107); Cholesterol 261 mg/dL (140-199); Estimated Glomerular Filt Rate > 60 mL/min (>60); Globulin 3.1 g/dL (1.7-4.1); Glucose 117 mg/dL (70-99); HEMOLYSIS < 15 (0-50); Potassium 4.6 mmol/L (3.4-5.1); Sodium 139 mmol/L (137-145); Total Protein 7.7 g/dL (6.3-8.2); Triglycerides 81 mg/dL (35-150)
[2025-03-23 11:15] LABS: HDL Cholesterol 137 mg/dL (40-60); Vitamin D 25 Hydroxy (D3) 16.9 ng/mL (30.0-100.0)
[2025-03-23 11:17] LABS: Free T3, Triiodothyronine Free 3.61 pg/mL (2.77-5.27)
[2025-03-23 11:31] LABS: TSH w/ Reflex to FT4 2.48 uIU/mL (0.47-4.68)
[2025-03-23 11:33] LABS: Ferritin 99 ng/mL (11-264)
[2025-03-23 11:50] LABS: Vitamin B12 Reflex MMA if <400 369 pg/mL (239-931)
[2025-03-24 05:12] LABS: CRP, High Sensitivity 3.05 mg/L (0.00-3.00)
== END ==
PROVIDERS: PCP Family Medicine; Referring Provider Family Medicine; Visit Provider Family Medicine
DX: R41.89 Other symptoms and signs involving cognitive functions and awareness (principal); E78.2 Mixed hyperlipidemia; E03.9 Hypothyroidism, unspecified; E66.9 Obesity, unspecified; R03.0 Elevated blood-pressure reading, without diagnosis of hypertension; E88.810 Metabolic syndrome; E78.5 Hyperlipidemia, unspecified
CPT/HCPCS: 36415; 80053; 80061; 82306; 82607; 82728; 83036; 83090; 83921; 84443; 84481; 85025; 86140